=== PATIENT | female | born 1945 | race Caucasian/White ===

== ENCOUNTER 2021-12-30 08:23 | Outpatient (CLI) | payer MEDICARE | END 2021-12-30 08:24 | disposition home or self-care (01) | LOC: CSHWCC 08:23 | PROVIDERS: ATTEND Nurse Practitioner Family | DX: I87.331 Chronic venous hypertension (idiopathic) with ulcer and inflammation of right lower extremity (principal); L97.212 Non-pressure chronic ulcer of right calf with fat layer exposed; R60.0 Localized edema | CPT/HCPCS: 11042; 97139; G0463; 99203 ==

== ENCOUNTER 2022-01-02 09:28 | Outpatient (CLI) | payer MEDICARE | END 2022-01-02 09:29 | disposition home or self-care (01) | LOC: CSHWCC 09:28 | PROVIDERS: ATTEND Nurse Practitioner Family | DX: I87.331 Chronic venous hypertension (idiopathic) with ulcer and inflammation of right lower extremity (principal); L97.212 Non-pressure chronic ulcer of right calf with fat layer exposed; R60.0 Localized edema ==

== ENCOUNTER 2022-01-14 08:24 | Outpatient (CLI) | payer MEDICARE | END 2022-01-14 08:25 | disposition home or self-care (01) | LOC: CSHWCC 08:24 | PROVIDERS: ATTEND Nurse Practitioner Family | DX: I87.331 Chronic venous hypertension (idiopathic) with ulcer and inflammation of right lower extremity (principal); L97.212 Non-pressure chronic ulcer of right calf with fat layer exposed; R60.0 Localized edema ==

== ENCOUNTER 2022-02-04 09:03 | Outpatient (CLI) | payer MEDICARE | END 2022-02-04 09:04 | disposition home or self-care (01) | LOC: CSHWCC 09:03 | PROVIDERS: ATTEND Nurse Practitioner Family | DX: I87.331 Chronic venous hypertension (idiopathic) with ulcer and inflammation of right lower extremity (principal); L97.212 Non-pressure chronic ulcer of right calf with fat layer exposed; R60.0 Localized edema ==

== ENCOUNTER 2022-02-18 11:09 | Outpatient (CLI) | payer MEDICARE | END 2022-02-18 11:10 | disposition home or self-care (01) | LOC: CSHWCC 11:09 | PROVIDERS: ATTEND Nurse Practitioner Family | DX: R60.0 Localized edema (principal) | CPT/HCPCS: 97139; G0463; 99213 ==

== ENCOUNTER 2022-06-28 17:41 | Inpatient (IN) | payer MEDICARE ==
[2022-06-28] MEDS ORDERED: traMADol HCl 50 MG TAB ONE ×2 (18:09→23:26)
[2022-06-28 19:06] LABS: Anion Gap 13 mmol/L (10-20); BUN (Urea Nitrogen) 48 mg/dL (9.8-20.1); Calc. Creatinine Clearance 0 mL/min (70-130); Calcium 8.4 mg/dL (7.8-10.44); Carbon Dioxide 22 mmol/L (23-31); Chloride 93 mmol/L (98-107); Estimated GFR 32; Glucose 101 mg/dL (83-110); Potassium 3.3 mmol/L (3.5-5.1); Sodium 125 mmol/L (136-145)
[2022-06-28] MEDS ORDERED: Bisacodyl 5 MG TAB PO PRN (20:08)
[2022-06-28] MEDS ORDERED: Loperamide HCl 2 MG CAP PO PRN (20:08)
[2022-06-28 20:31] VITALS: BMI 29.0
[2022-06-28] MEDS ORDERED: Acetaminophen 325 MG TAB ONE (20:41)
[2022-06-28] MEDS: Acetaminophen 325 MG TAB PO PRN (20:44)
[2022-06-28] MEDS ORDERED: Vancomycin 1.5 GRAM/300 ML BAG 1.5 GM in Premix Bag 1 BAG IVPB SCH (21:00)
[2022-06-28] MEDS ORDERED: Nicotine 14 MG PATCH ONE (21:01)
[2022-06-28] MEDS ORDERED: Famotidine/PF 20 mg/2ml Vial ONE (21:02)
[2022-06-28] MEDS: Nicotine 14 MG PATCH TD SCH (21:20)
[2022-06-28] MEDS: Sodium Chloride 1 GM TAB PO SCH (21:20)
[2022-06-28] MEDS: Latanoprost 0.005% Ophth Soln 2.5 ml Bottle L EYE SCH (21:34)
[2022-06-28] MEDS: Potassium Chloride 20 MEQ in Lactated Ringer's 1,000 ML IV SCH (21:38)
[2022-06-28] MEDS ORDERED: Ondansetron PF 4 MG/2 ML Vial ONE (21:40)
[2022-06-28] MEDS: Ondansetron PF 4 MG/2 ML Vial IVP PRN (21:43)
[2022-06-28 21:56] LABS: CRP (Inflammatory) 23.33 mg/dL (= or < 0.5); Uric Acid 6.6 mg/dL (2.6-6.0)
[2022-06-28] MEDS: traMADol HCl 50 MG TAB PO PRN (23:28)
[2022-06-29 04:39] LABS: ALT (SGPT) 25 U/L (8-55); AST (SGOT) 35 U/L (5-34); Albumin 3.2 g/dL (3.4-4.8); Alkaline Phosphatase 87 U/L (40-110); Anion Gap 16 mmol/L (10-20); BUN (Urea Nitrogen) 35 mg/dL (9.8-20.1); Bilirubin, Total 0.4 mg/dL (0.2-1.2); Calc. Creatinine Clearance 55 mL/min (70-130); Calcium 8.7 mg/dL (7.8-10.44); Carbon Dioxide 21 mmol/L (23-31); Chloride 97 mmol/L (98-107); Estimated GFR 52; Globulin 3.6 g/dL (2.4-3.5); Glucose 85 mg/dL (83-110); Magnesium 1.8 mg/dL (1.6-2.6); Protein, Total 6.8 g/dL (5.8-8.1); Sodium 130 mmol/L (136-145)
[2022-06-29] MEDS ORDERED: Ondansetron PF 4 MG/2 ML Vial ONE (06:26)
[2022-06-29] MEDS ORDERED: traMADol HCl 50 MG TAB ONE (06:27)
[2022-06-29] MEDS: Sodium Chloride 1 GM TAB PO SCH ×3 (06:34→21:58)
[2022-06-29] MEDS: Ondansetron PF 4 MG/2 ML Vial IVP PRN ×2 (06:34→22:13)
[2022-06-29] MEDS: traMADol HCl 50 MG TAB PO PRN (06:35)
[2022-06-29 08:41] LABS: Creatinine, Urine 61.57 mg/dL (47-110)
[2022-06-29] MEDS ORDERED: Enoxaparin Sodium 40 MG/0.4 ML SYRINGE ONE (08:44)
[2022-06-29] MEDS ORDERED: Morphine 2 MG/ML VIAL ONE (08:45)
[2022-06-29] MEDS ORDERED: Aspirin 325 MG TAB ONE (08:45)
[2022-06-29] MEDS ORDERED: Famotidine 20 MG TAB ONE (08:50)
[2022-06-29] MEDS ORDERED: Zinc Sulfate 220 MG CAP ONE (08:51)
[2022-06-29] MEDS ORDERED: Famotidine 20 MG TAB PO SCH (09:00)
[2022-06-29] MEDS: Enoxaparin Sodium 40 MG/0.4 ML SYRINGE SC SCH (09:11)
[2022-06-29] MEDS: Zinc Sulfate 220 MG CAP PO SCH (09:11)
[2022-06-29] MEDS: Aspirin 325 MG TAB PO SCH (09:11)
[2022-06-29] MEDS: Morphine 2 MG/ML VIAL SLOW IVP PRN (09:12)
[2022-06-29 10:17] LABS: Anion Gap 15 mmol/L (10-20); BUN (Urea Nitrogen) 25 mg/dL (9.8-20.1); Calc. Creatinine Clearance 73 mL/min (70-130); Calcium 8.3 mg/dL (7.8-10.44); Carbon Dioxide 19 mmol/L (23-31); Chloride 98 mmol/L (98-107); Estimated GFR 73; Glucose 106 mg/dL (83-110); Potassium 3.7 mmol/L (3.5-5.1); Sodium 128 mmol/L (136-145)
[2022-06-29] MEDS: Potassium Chloride 20 MEQ in Lactated Ringer's 1,000 ML IV SCH (11:21)
[2022-06-29] MEDS ORDERED: Sodium Bicarbonate Tab 325 MG TAB PO SCH (16:00)
[2022-06-29 16:36] LABS: Anion Gap 13 mmol/L (10-20); BUN (Urea Nitrogen) 21 mg/dL (9.8-20.1); Calc. Creatinine Clearance 76 mL/min (70-130); Calcium 8.4 mg/dL (7.8-10.44); Carbon Dioxide 24 mmol/L (23-31); Chloride 97 mmol/L (98-107); Estimated GFR 77; Glucose 92 mg/dL (83-110); Potassium 3.9 mmol/L (3.5-5.1); Sodium 130 mmol/L (136-145)
[2022-06-29] MEDS ORDERED: Vancomycin HCl 1 GM in Sodium Chloride 0.9% 250 ML 250 ML IVPB SCH (21:00)
[2022-06-29] MEDS: Sodium Bicarbonate Tab 325 MG TAB PO SCH (21:11)
[2022-06-29] MEDS: Famotidine 20 MG TAB PO SCH (21:11)
[2022-06-29] MEDS: Nicotine 14 MG PATCH TD SCH (21:22)
[2022-06-29] MEDS: Latanoprost 0.005% Ophth Soln 2.5 ml Bottle L EYE SCH (21:58)
[2022-06-29 22:09] LABS: Anion Gap 11 mmol/L (10-20); BUN (Urea Nitrogen) 18 mg/dL (9.8-20.1); Calc. Creatinine Clearance 88 mL/min (70-130); Calcium 8.4 mg/dL (7.8-10.44); Carbon Dioxide 23 mmol/L (23-31); Chloride 97 mmol/L (98-107); Estimated GFR 89; Glucose 104 mg/dL (83-110); Potassium 3.5 mmol/L (3.5-5.1); Sodium 127 mmol/L (136-145)
[2022-06-30] MEDS: Morphine 2 MG/ML VIAL SLOW IVP PRN (00:06)
[2022-06-30] MEDS: Guaifenesin DM 100-10/5 ML UDCUP PO PRN (04:40)
[2022-06-30] MEDS: traMADol HCl 50 MG TAB PO PRN (05:32)
[2022-06-30 06:32] LABS: Magnesium 1.8 mg/dL (1.6-2.6)
[2022-06-30 07:15] LABS: #Basophils 0.2 10x3/uL (0.0-0.2); #Monocytes 1.4 10x3/uL (0.0-1.1); #Neutrophils 12.3 10x3/uL (1.5-8.4); %Basophils 1.2 % (0.0-2.0); %Eosinophils 0.2 % (0.0-6.0); %Lymphocytes 8.3 % (18.0-47.0); %Monocytes 8.7 % (0.0-10.0); %Neutrophils 77.9 % (40.0-75.0); Hemoglobin 11.4 g/dL (12.0-15.5); Mean Corpuscular HGB CONC 36.5 g/dL (32.0-36.0); Mean Corpuscular Hemoglobin 29.6 pg (27.0-33.0); Mean Platelet Volume 9.3 fl (7.4-10.4); Platelet Count 262 10x3/uL (150-450); RBC Distribution Width 13.8 % (11.5-14.5); Red Blood Cell (RBC) Count 3.85 10x6/uL (3.90-5.03); White Blood Cell (WBC) Count 15.8 10x3/uL (3.5-10.5)
[2022-06-30] MEDS ORDERED: ALPRAZolam 0.25 MG TAB PO PRN (07:24)
[2022-06-30 07:29] LABS: Bilirubin Neg (Negative); Blood, Urine 50 (Negative); CAUTI Indications for Culture Fever or rigors; Clarity Slightly Cloudy (Clear); Glucose, Urine (Dipstick) Normal (Negative); Ketone, Urine Negative (Negative); Leukocyte 100 (Negative); Nitrite Negative (Negative); Protein, Urine (Dipstick) 30 mg/dl (Neg-Trace); Urobilinogen Normal mg/dL (Less than 2)
[2022-06-30 07:32] LABS: Urine Culture Reflex No No
[2022-06-30 07:33] LABS: Anion Gap 15 mmol/L (10-20); BUN (Urea Nitrogen) 12 mg/dL (9.8-20.1); Calc. Creatinine Clearance 89 mL/min (70-130); Calcium 8.5 mg/dL (7.8-10.44); Carbon Dioxide 21 mmol/L (23-31); Chloride 99 mmol/L (98-107); Estimated GFR 89; Glucose 94 mg/dL (83-110); Potassium 3.6 mmol/L (3.5-5.1); Sodium 131 mmol/L (136-145)
[2022-06-30 07:42] LABS: Bacteria/HPF 1+ HPF (None Seen); RBC/HPF 0-3 HPF (0-3); Squamous Epithelial 0-3 HPF (0-3)
[2022-06-30] MEDS: Enoxaparin Sodium 40 MG/0.4 ML SYRINGE SC SCH (09:02)
[2022-06-30] MEDS: Famotidine 20 MG TAB PO SCH ×2 (09:02→21:06)
[2022-06-30] MEDS: Sodium Bicarbonate Tab 325 MG TAB PO SCH ×3 (09:02→21:11)
[2022-06-30] MEDS: Aspirin 325 MG TAB PO SCH (09:02)
[2022-06-30] MEDS: Zinc Sulfate 220 MG CAP PO SCH (09:02)
[2022-06-30] MEDS: Sodium Chloride 1 GM TAB PO SCH ×3 (09:03→21:04)
[2022-06-30] MEDS ORDERED: Magnesium Oxide 400 MG TAB PO SCH (16:00)
[2022-06-30] MEDS: metroNIDAZOLE 500 MG in Premix Bag 1 BAG IVPB SCH (16:40)
[2022-06-30 20:29] LABS: Vancomycin, Trough 5.9 ug/mL
[2022-06-30] MEDS: Vancomycin HCl 1 GM in Sodium Chloride 0.9% 250 ML 250 ML IVPB SCH (21:04)
[2022-06-30] MEDS: Mirtazapine 15 MG TAB PO SCH (21:06)
[2022-06-30] MEDS: Latanoprost 0.005% Ophth Soln 2.5 ml Bottle L EYE SCH (21:07)
[2022-06-30] MEDS: Nicotine 14 MG PATCH TD SCH (21:12)
[2022-07-01] MEDS: metroNIDAZOLE 500 MG in Premix Bag 1 BAG IVPB SCH ×4 (00:06→17:31)
[2022-07-01] MEDS ORDERED: cloNIDine 0.1 MG TAB PO SCH (02:30)
[2022-07-01] MEDS: Guaifenesin DM 100-10/5 ML UDCUP PO PRN ×3 (05:03→18:20)
[2022-07-01 05:04] LABS: Anion Gap 14 mmol/L (10-20); BUN (Urea Nitrogen) 9 mg/dL (9.8-20.1); Calc. Creatinine Clearance 92 mL/min (70-130); Calcium 8.3 mg/dL (7.8-10.44); Carbon Dioxide 23 mmol/L (23-31); Chloride 99 mmol/L (98-107); Estimated GFR 90; Glucose 94 mg/dL (83-110); Magnesium 1.7 mg/dL (1.6-2.6); Potassium 3.5 mmol/L (3.5-5.1); Sodium 132 mmol/L (136-145)
[2022-07-01 05:07] LABS: #Basophils 0.2 10x3/uL (0.0-0.2); #Eosinphils 0.1 10x3/uL (0.0-0.5); #Monocytes 1.3 10x3/uL (0.0-1.1); #Neutrophils 10.1 10x3/uL (1.5-8.4); %Basophils 1.2 % (0.0-2.0); %Eosinophils 0.5 % (0.0-6.0); %Lymphocytes 10.6 % (18.0-47.0); %Monocytes 9.6 % (0.0-10.0); %Neutrophils 74.1 % (40.0-75.0); Hemoglobin 11.3 g/dL (12.0-15.5); Mean Corpuscular HGB CONC 35.9 g/dL (32.0-36.0); Mean Corpuscular Hemoglobin 29.3 pg (27.0-33.0); Mean Corpuscular Volume 81.6 fl (81.6-98.3); Mean Platelet Volume 9.4 fl (7.4-10.4); Platelet Count 297 10x3/uL (150-450); RBC Distribution Width 13.9 % (11.5-14.5); Red Blood Cell (RBC) Count 3.86 10x6/uL (3.90-5.03); White Blood Cell (WBC) Count 13.7 10x3/uL (3.5-10.5)
[2022-07-01] MEDS ORDERED: Potassium Chloride 20 MEQ TAB PO SCH (08:00)
[2022-07-01] MEDS ORDERED: Lisinopril 20 MG TAB PO SCH (09:00)
[2022-07-01] MEDS: Vancomycin HCl 1 GM in Sodium Chloride 0.9% 250 ML 250 ML IVPB SCH ×2 (10:35→20:56)
[2022-07-01] MEDS: Acetaminophen 325 MG TAB PO PRN (10:41)
[2022-07-01] MEDS: Aspirin 325 MG TAB PO SCH (10:41)
[2022-07-01] MEDS: Sacubitril 49 MG/Valsartan 51 MG TABLET PO SCH ×2 (10:42→20:56)
[2022-07-01] MEDS: Zinc Sulfate 220 MG CAP PO SCH (10:42)
[2022-07-01] MEDS: Sodium Bicarbonate Tab 325 MG TAB PO SCH ×3 (10:42→20:55)
[2022-07-01] MEDS: Magnesium Oxide 400 MG TAB PO SCH (10:42)
[2022-07-01] MEDS: Famotidine 20 MG TAB PO SCH ×2 (10:42→20:54)
[2022-07-01] MEDS: Enoxaparin Sodium 40 MG/0.4 ML SYRINGE SC SCH (10:49)
[2022-07-01] MEDS: Sodium Chloride 1 GM TAB PO SCH ×3 (10:49→20:55)
[2022-07-01] MEDS: traMADol HCl 50 MG TAB PO PRN (12:54)
[2022-07-01] MEDS: Ondansetron PF 4 MG/2 ML Vial IVP PRN (12:55)
[2022-07-01] MEDS: Magnesium 2 GM/50 ML(in water) 2 GM in Premix Bag 1 BAG IVPB SCH (16:14)
[2022-07-01] MEDS: Morphine 2 MG/ML VIAL SLOW IVP PRN (18:08)
[2022-07-01] MEDS: Latanoprost 0.005% Ophth Soln 2.5 ml Bottle L EYE SCH (20:54)
[2022-07-01] MEDS: Mirtazapine 15 MG TAB PO SCH (20:55)
[2022-07-01] MEDS: Nicotine 14 MG PATCH TD SCH (21:57)
[2022-07-02] MEDS: metroNIDAZOLE 500 MG in Premix Bag 1 BAG IVPB SCH ×2 (01:37→05:00)
[2022-07-02] MEDS: Guaifenesin DM 100-10/5 ML UDCUP PO PRN (01:49)
[2022-07-02 05:56] LABS: #Basophils 0.1 10x3/uL (0.0-0.2); #Eosinphils 0.1 10x3/uL (0.0-0.5); #Monocytes 1.5 10x3/uL (0.0-1.1); #Neutrophils 8.1 10x3/uL (1.5-8.4); %Basophils 0.6 % (0.0-2.0); %Eosinophils 0.9 % (0.0-6.0); %Lymphocytes 12.5 % (18.0-47.0); %Monocytes 13.3 % (0.0-10.0); Hemoglobin 12.2 g/dL (12.0-15.5); Mean Corpuscular Hemoglobin 29.3 pg (27.0-33.0); Mean Corpuscular Volume 81.5 fl (81.6-98.3); Mean Platelet Volume 9.6 fl (7.4-10.4); Platelet Count 376 10x3/uL (150-450); RBC Distribution Width 13.9 % (11.5-14.5); Red Blood Cell (RBC) Count 4.16 10x6/uL (3.90-5.03); White Blood Cell (WBC) Count 11.4 10x3/uL (3.5-10.5)
[2022-07-02 06:04] LABS: Anion Gap 13 mmol/L (10-20); BUN (Urea Nitrogen) 9 mg/dL (9.8-20.1); Calc. Creatinine Clearance 91 mL/min (70-130); Calcium 8.3 mg/dL (7.8-10.44); Carbon Dioxide 24 mmol/L (23-31); Chloride 98 mmol/L (98-107); Estimated GFR 90; Glucose 101 mg/dL (83-110); Magnesium 1.7 mg/dL (1.6-2.6); Potassium 3.4 mmol/L (3.5-5.1); Sodium 132 mmol/L (136-145)
[2022-07-02] MEDS ORDERED: Magnesium Sulfate 4 GM in Sodium Chloride 0.9% 250 ML 250 ML IVPB SCH (06:45)
[2022-07-02] MEDS ORDERED: Potassium Chloride 20 MEQ TAB PO SCH (08:00)
[2022-07-02 08:29] LABS: Vancomycin, Trough 13.5 ug/mL
[2022-07-02] MEDS ORDERED: Sacubitril 49 MG/Valsartan 51 MG TABLET PO SCH (09:00)
[2022-07-02] MEDS: Enoxaparin Sodium 40 MG/0.4 ML SYRINGE SC SCH (10:32)
[2022-07-02] MEDS: Vancomycin HCl 1 GM in Sodium Chloride 0.9% 250 ML 250 ML IVPB SCH (10:32)
[2022-07-02] MEDS: Magnesium 2 GM/50 ML(in water) 2 GM in Premix Bag 1 BAG IVPB SCH ×3 (10:33→13:35)
[2022-07-02] MEDS: Zinc Sulfate 220 MG CAP PO SCH (10:34)
[2022-07-02] MEDS: Sodium Bicarbonate Tab 325 MG TAB PO SCH (10:34)
[2022-07-02] MEDS: Aspirin 325 MG TAB PO SCH (10:34)
[2022-07-02] MEDS: Magnesium Oxide 400 MG TAB PO SCH (10:35)
[2022-07-02] MEDS: Famotidine 20 MG TAB PO SCH (10:35)
[2022-07-02] MEDS: Sodium Chloride 1 GM TAB PO SCH (10:51)
[2022-07-02] MEDS: Ondansetron PF 4 MG/2 ML Vial IVP PRN (13:36)
[2022-07-02] MEDS ORDERED: Magnesium 2 GM/50 ML(in water) 2 GM in Premix Bag 1 BAG IVPB SCH (14:00)
[2022-07-02 16:10] VITALS: BP 155/72; TEMP 98.6
[2022-07-02] MEDS ORDERED: Linezolid 600 MG TAB PO SCH (16:30)
== END 2022-07-02 17:35 | disposition home or self-care (01) | DRG 863 ==
LOC: CSHERS 17:41 → INTOOBSV 19:43 → CSHERHOLD 19:43 → OBSVTOIN 06-29 09:16 → CSHTELE 06-29 14:26
PROVIDERS: ADMIT Internal Medicine; ATTEND Internal Medicine
DX: T81.41XA Infection following a procedure, superficial incisional surgical site, initial encounter (principal); N17.9 Acute kidney failure, unspecified; E22.2 Syndrome of inappropriate secretion of antidiuretic hormone; L03.116 Cellulitis of left lower limb; E87.20 Acidosis, unspecified; Z20.822 Contact with and (suspected) exposure to COVID-19; I10 Essential (primary) hypertension; F17.210 Nicotine dependence, cigarettes, uncomplicated; E89.0 Postprocedural hypothyroidism; K21.9 Gastro-esophageal reflux disease without esophagitis; F32.A Depression, unspecified; K52.9 Noninfective gastroenteritis and colitis, unspecified; E78.00 Pure hypercholesterolemia, unspecified; E87.6 Hypokalemia; Z88.6 Allergy status to analgesic agent; Z88.2 Allergy status to sulfonamides; Z88.1 Allergy status to other antibiotic agents; Z88.8 Allergy status to other drugs, medicaments and biological substances; Z79.82 Long term (current) use of aspirin; Z79.899 Other long term (current) drug therapy; Z86.73 Personal history of transient ischemic attack (TIA), and cerebral infarction without residual deficits; Z90.710 Acquired absence of both cervix and uterus; Z82.49 Family history of ischemic heart disease and other diseases of the circulatory system; Z90.89 Acquired absence of other organs; Z71.6 Tobacco abuse counseling; Y83.8 Other surgical procedures as the cause of abnormal reaction of the patient, or of later complication, without mention of misadventure at the time of the procedure
CPT/HCPCS: 36415; 80048; 80053; 80202; 81001; 82570; 83735; 83930; 83935; 84156; 84300; 84443; 84540; 84550; 85025; 86140; 93005; 93010; 94760; J1650; J1956; J2270; J2405; J3370; J3475; J3480; J7050; J7120; S0028; U0003; U0005

== ENCOUNTER 2022-07-05 15:05 | Emergency (ER) | payer MEDICARE ==
[2022-07-05 16:33] LABS: #Basophils 0.1 10x3/uL (0.0-0.2); #Eosinphils 0.2 10x3/uL (0.0-0.5); #Monocytes 1.2 10x3/uL (0.0-1.1); %Basophils 0.4 % (0.0-2.0); %Eosinophils 1.5 % (0.0-6.0); %Lymphocytes 19.8 % (18.0-47.0); %Monocytes 9.9 % (0.0-10.0); %Neutrophils 66.7 % (40.0-75.0); Hemoglobin 12.5 g/dL (12.0-15.5); Mean Corpuscular Hemoglobin 29.6 pg (27.0-33.0); Mean Corpuscular Volume 84.4 fl (81.6-98.3); Mean Platelet Volume 8.8 fl (7.4-10.4); Platelet Count 510 10x3/uL (150-450); RBC Distribution Width 14.2 % (11.5-14.5); Red Blood Cell (RBC) Count 4.23 10x6/uL (3.90-5.03)
[2022-07-05 16:45] LABS: PTT 28.4 sec (22.0-33.0); Prothrombin Time 11.1 sec (9.5-12.1)
[2022-07-05 16:49] LABS: ALT (SGPT) 16 U/L (8-55); AST (SGOT) 17 U/L (5-34); Albumin 3.5 g/dL (3.4-4.8); Alkaline Phosphatase 118 U/L (40-110); Anion Gap 17 mmol/L (10-20); BUN (Urea Nitrogen) 9 mg/dL (9.8-20.1); Bilirubin, Total 0.4 mg/dL (0.2-1.2); Calc. Creatinine Clearance 0 mL/min (70-130); Calcium 8.9 mg/dL (7.8-10.44); Carbon Dioxide 25 mmol/L (23-31); Chloride 97 mmol/L (98-107); Estimated GFR 81; Globulin 3.5 g/dL (2.4-3.5); Glucose 74 mg/dL (83-110); Potassium 4.7 mmol/L (3.5-5.1); Sodium 134 mmol/L (136-145)
== END 2022-07-05 18:05 | disposition home or self-care (01) ==
LOC: CSHERS 15:05
DX: L03.116 Cellulitis of left lower limb (principal); I87.2 Venous insufficiency (chronic) (peripheral); E78.5 Hyperlipidemia, unspecified; E78.00 Pure hypercholesterolemia, unspecified; I10 Essential (primary) hypertension; F17.210 Nicotine dependence, cigarettes, uncomplicated
CPT/HCPCS: 80053; 83605; 85025; 85610; 85652; 85730; 86140

== ENCOUNTER 2022-11-05 09:38 | Emergency (ER) | payer OTHER ==
[2022-11-05] MEDS ORDERED: Acetaminophen 325 MG TAB ONE (12:43)
[2022-11-05] MEDS ORDERED: Boostrix 0.5 ML (Tdap) VIAL (>/=7 yrs of age) ONE (12:44)
== END 2022-11-05 13:15 | disposition home or self-care (01) ==
LOC: CSHERS 09:38
DX: S02.2XXA Fracture of nasal bones, initial encounter for closed fracture (principal); S51.812A Laceration without foreign body of left forearm, initial encounter; K21.9 Gastro-esophageal reflux disease without esophagitis; E78.00 Pure hypercholesterolemia, unspecified; I10 Essential (primary) hypertension; F17.210 Nicotine dependence, cigarettes, uncomplicated; W22.8XXA Striking against or struck by other objects, initial encounter; Z86.73 Personal history of transient ischemic attack (TIA), and cerebral infarction without residual deficits
CPT/HCPCS: 70450; 70486; 90471; 90715

== ENCOUNTER 2023-03-17 20:07 | Inpatient (IN) | payer MEDICARE, OTHER ==
[~2023-03-17 20:07] MED LIST: Iopamidol 300 61% 100 ML VIAL FS ONE
[2023-03-17 21:03] LABS: #Eosinphils 0.1 10x3/uL (0.0-0.5); #Neutrophils 17.7 10x3/uL (1.5-8.4); %Basophils 0.2 % (0.0-2.0); %Eosinophils 0.3 % (0.0-6.0); %Lymphocytes 2.9 % (18.0-47.0); %Monocytes 5.2 % (0.0-10.0); %Neutrophils 90.9 % (40.0-75.0); Hematocrit 40.8 % (34.9-44.5); Hemoglobin 13.6 g/dL (12.0-15.5); Mean Corpuscular HGB CONC 33.3 g/dL (32.0-36.0); Mean Corpuscular Hemoglobin 29.6 pg (27.0-33.0); Mean Corpuscular Volume 88.7 fl (81.6-98.3); Mean Platelet Volume 9.2 fl (7.4-10.4); Platelet Count 212 10x3/uL (150-450); RBC Distribution Width 14.6 % (11.5-14.5); White Blood Cell (WBC) Count 19.5 10x3/uL (3.5-10.5)
[2023-03-17 21:30] LABS: ALT (SGPT) 12 U/L (8-55); AST (SGOT) 22 U/L (5-34); Albumin 3.8 g/dL (3.4-4.8); Alkaline Phosphatase 63 U/L (40-110); Anion Gap 20 mmol/L (10-20); BUN (Urea Nitrogen) 23 mg/dL (9.8-20.1); Bilirubin, Total 0.3 mg/dL (0.2-1.2); Calc. Creatinine Clearance 0 mL/min (70-130); Calcium 8.9 mg/dL (7.8-10.44); Carbon Dioxide 14 mmol/L (23-31); Chloride 99 mmol/L (98-107); Estimated GFR 61; Globulin 4.2 g/dL (2.4-3.5); Glucose 115 mg/dL (83-110); Lipase 38 U/L (8-78); Magnesium 1.7 mg/dL (1.6-2.6); Potassium 3.8 mmol/L (3.5-5.1); Sodium 129 mmol/L (136-145); Troponin I Less than 0.010 ng/mL (< 0.028)
[2023-03-17 21:39] LABS: Bilirubin Neg (Negative); Blood, Urine 25 (Negative); Clarity Clear (Clear); Glucose, Urine (Dipstick) Normal (Negative); Ketone, Urine Negative (Negative); Leukocyte Negative (Negative); Nitrite Negative (Negative); Protein, Urine (Dipstick) 100 mg/dl (Neg-Trace); Urobilinogen Normal mg/dL (Less than 2)
[2023-03-17 21:53] LABS: Bacteria/HPF None Seen HPF (None Seen); CAUTI Indications for Culture Dysuria,urgency,freq; RBC/HPF None Seen HPF (0-3); Squamous Epithelial 0-3 HPF (0-3); Urine Culture Reflex No No; WBC/HPF None Seen HPF (0-3)
[2023-03-17] MEDS ORDERED: Ondansetron PF 4 MG/2 ML Vial ONE (22:04)
[2023-03-17] MEDS ORDERED: LevoFLOXacin 750 mg/D5W 150 ml Premix Bag ONE (22:05)
[2023-03-18 00:13] LABS: Lactic Acid 3.1 mmol/L (0.5-2.2)
[2023-03-18] MEDS ORDERED: Communication Order-Pharmacy FS PRN (00:26)
[2023-03-18] MEDS ORDERED: Lactated Ringer's 1,000 ML IV SCH ×2 (00:30→02:00)
[2023-03-18] MEDS ORDERED: Vancomycin HCl 1.5 GM in Sodium Chloride 0.9% 500 ML IVPB SCH (00:30)
[2023-03-18] MEDS ORDERED: Metoprolol Tartrate 5 MG/5 ML VIAL IVP SCH (01:00)
[2023-03-18 01:42] VITALS: BMI 26.3
[2023-03-18] MEDS ORDERED: Vancomycin 1.5 GRAM/300 ML BAG 1.5 GM in Premix Bag 1 BAG IVPB SCH (02:00)
[2023-03-18] MEDS: metroNIDAZOLE 500 MG in Premix Bag 1 BAG IVPB SCH ×3 (02:03→16:58)
[2023-03-18] MEDS: Lactated Ringer's 1,000 ML IV SCH ×2 (02:03→14:43)
[2023-03-18] MEDS: Promethazine HCl 12.5 MG, Admixture Fee 1 EACH in Sodium Chloride 0.9% 50 ML IVPB PRN ×2 (04:26→11:45)
[2023-03-18 04:45] LABS: #Monocytes 0.4 10x3/uL (0.0-1.1); #Neutrophils 16.1 10x3/uL (1.5-8.4); %Basophils 0.2 % (0.0-2.0); %Eosinophils 0.1 % (0.0-6.0); %Lymphocytes 1.4 % (18.0-47.0); %Monocytes 2.6 % (0.0-10.0); %Neutrophils 95.2 % (40.0-75.0); Hematocrit 41.1 % (34.9-44.5); Hemoglobin 14.2 g/dL (12.0-15.5); Mean Corpuscular HGB CONC 34.5 g/dL (32.0-36.0); Mean Platelet Volume 9.1 fl (7.4-10.4); Platelet Count 254 10x3/uL (150-450); RBC Distribution Width 14.4 % (11.5-14.5); Red Blood Cell (RBC) Count 4.89 10x6/uL (3.90-5.03); White Blood Cell (WBC) Count 16.9 10x3/uL (3.5-10.5)
[2023-03-18 04:49] LABS: INR-International Normal Ratio 1.1; PTT 29.2 sec (22.0-33.0); Prothrombin Time 11.3 sec (9.5-12.1)
[2023-03-18 04:53] LABS: ALT (SGPT) 12 U/L (8-55); AST (SGOT) 18 U/L (5-34); Alkaline Phosphatase 58 U/L (40-110); Anion Gap 16 mmol/L (10-20); BUN (Urea Nitrogen) 18 mg/dL (9.8-20.1); Bilirubin, Total 0.6 mg/dL (0.2-1.2); Calc. Creatinine Clearance 63 mL/min (70-130); Calcium 8.7 mg/dL (7.8-10.44); Carbon Dioxide 21 mmol/L (23-31); Chloride 98 mmol/L (98-107); Estimated GFR 71; Globulin 3.9 g/dL (2.4-3.5); Glucose 156 mg/dL (83-110); Potassium 3.4 mmol/L (3.5-5.1); Protein, Total 7.9 g/dL (5.8-8.1); Sodium 132 mmol/L (136-145)
[2023-03-18 05:55] LABS: Magnesium 1.6 mg/dL (1.6-2.6)
[2023-03-18] MEDS ORDERED: Potassium Bicarbonate/Cit Ac 25 MEQ TAB PO SCH (10:00)
[2023-03-18] MEDS ORDERED: Ondansetron HCl/PF 4 MG in Sodium Chloride 0.9% 50 ML IVPB PRN (10:07)
[2023-03-18] MEDS: Ondansetron PF 4 MG/2 ML Vial IVP PRN (14:34)
[2023-03-18] MEDS: Acetaminophen 325 MG TAB PO PRN (14:37)
[2023-03-18] MEDS ORDERED: metroNIDAZOLE 500 MG/100 ML BAG ONE (16:47)
[2023-03-18] MEDS ORDERED: Vancomycin HCl 1 GM in Sodium Chloride 0.9% 250 ML 250 ML IVPB SCH (20:00)
[2023-03-19] MEDS: Acetaminophen 325 MG TAB PO PRN ×3 (01:29→17:12)
[2023-03-19] MEDS: metroNIDAZOLE 500 MG in Premix Bag 1 BAG IVPB SCH ×3 (01:29→17:15)
[2023-03-19 04:36] LABS: #Monocytes 1.6 10x3/uL (0.0-1.1); #Neutrophils 11.1 10x3/uL (1.5-8.4); %Basophils 0.1 % (0.0-2.0); %Eosinophils 0.1 % (0.0-6.0); %Lymphocytes 9.8 % (18.0-47.0); %Monocytes 11.5 % (0.0-10.0); Hematocrit 37.2 % (34.9-44.5); Mean Corpuscular HGB CONC 34.9 g/dL (32.0-36.0); Mean Corpuscular Hemoglobin 29.1 pg (27.0-33.0); Mean Corpuscular Volume 83.2 fl (81.6-98.3); Mean Platelet Volume 8.7 fl (7.4-10.4); Platelet Count 233 10x3/uL (150-450); RBC Distribution Width 14.7 % (11.5-14.5); Red Blood Cell (RBC) Count 4.47 10x6/uL (3.90-5.03); White Blood Cell (WBC) Count 14.2 10x3/uL (3.5-10.5)
[2023-03-19 04:42] LABS: Lactic Acid 0.9 mmol/L (0.5-2.2)
[2023-03-19 04:46] LABS: Anion Gap 13 mmol/L (10-20); BUN (Urea Nitrogen) 8 mg/dL (9.8-20.1); Calc. Creatinine Clearance 81 mL/min (70-130); Calcium 8.6 mg/dL (7.8-10.44); Carbon Dioxide 21 mmol/L (23-31); Chloride 96 mmol/L (98-107); Estimated GFR 89; Glucose 119 mg/dL (83-110); Sodium 127 mmol/L (136-145)
[2023-03-19] MEDS: Lactated Ringer's 1,000 ML IV SCH (06:17)
[2023-03-19] MEDS: Sodium Chloride 0.9% 1,000 ML IV SCH ×2 (09:19→21:25)
[2023-03-19] MEDS: Potassium Chloride 20 MEQ in Premix Bag 1 BAG IVPB SCH ×4 (10:37→17:08)
[2023-03-19] MEDS: Ondansetron PF 4 MG/2 ML Vial IVP PRN (10:44)
[2023-03-19] MEDS: Labetalol HCl 100 MG/20 ML VIAL SLOW IVP PRN (15:50)
[2023-03-19] MEDS: traMADol HCl 50 MG TAB PO PRN (16:10)
[2023-03-19] MEDS ORDERED: Sodium Chloride 1 GM TAB PO SCH (21:00)
[2023-03-19] MEDS: Apixaban 5 MG TAB PO SCH (21:19)
[2023-03-19] MEDS: Metoprolol Tartrate 25 MG TAB PO SCH (21:19)
[2023-03-20] MEDS: metroNIDAZOLE 500 MG in Premix Bag 1 BAG IVPB SCH ×3 (02:58→16:47)
[2023-03-20] MEDS: Labetalol HCl 100 MG/20 ML VIAL SLOW IVP PRN (03:54)
[2023-03-20 04:57] LABS: #Eosinphils 0.1 10x3/uL (0.0-0.5); #Monocytes 1.2 10x3/uL (0.0-1.1); #Neutrophils 8.3 10x3/uL (1.5-8.4); %Basophils 0.2 % (0.0-2.0); %Eosinophils 1.1 % (0.0-6.0); %Lymphocytes 13.6 % (18.0-47.0); %Monocytes 10.7 % (0.0-10.0); %Neutrophils 74.1 % (40.0-75.0); Hemoglobin 13.6 g/dL (12.0-15.5); Mean Corpuscular HGB CONC 34.9 g/dL (32.0-36.0); Mean Corpuscular Hemoglobin 29.1 pg (27.0-33.0); Mean Corpuscular Volume 83.5 fl (81.6-98.3); Mean Platelet Volume 9.3 fl (7.4-10.4); Platelet Count 249 10x3/uL (150-450); RBC Distribution Width 14.3 % (11.5-14.5); Red Blood Cell (RBC) Count 4.67 10x6/uL (3.90-5.03); White Blood Cell (WBC) Count 11.2 10x3/uL (3.5-10.5)
[2023-03-20 05:06] LABS: ALT (SGPT) 8 U/L (8-55); AST (SGOT) 17 U/L (5-34); Albumin 3.5 g/dL (3.4-4.8); Alkaline Phosphatase 58 U/L (40-110); Anion Gap 13 mmol/L (10-20); BUN (Urea Nitrogen) 7 mg/dL (9.8-20.1); Bilirubin, Total 0.7 mg/dL (0.2-1.2); Calc. Creatinine Clearance 83 mL/min (70-130); Calcium 8.6 mg/dL (7.8-10.44); Carbon Dioxide 22 mmol/L (23-31); Chloride 96 mmol/L (98-107); Estimated GFR 90; Globulin 3.7 g/dL (2.4-3.5); Glucose 115 mg/dL (83-110); Magnesium 1.8 mg/dL (1.6-2.6); Potassium 3.1 mmol/L (3.5-5.1); Protein, Total 7.2 g/dL (5.8-8.1); Sodium 128 mmol/L (136-145)
[2023-03-20 05:08] LABS: Phosphorus 1.7 mg/dL (2.3-4.7)
[2023-03-20] MEDS: Amlodipine 5 MG TAB PO SCH (08:52)
[2023-03-20] MEDS: Apixaban 5 MG TAB PO SCH ×2 (08:52→21:05)
[2023-03-20] MEDS: Aspirin 81 mg Enteric Coated Tablet PO SCH (08:53)
[2023-03-20] MEDS: Lisinopril 20 MG TAB PO SCH (08:53)
[2023-03-20] MEDS: Metoprolol Tartrate 25 MG TAB PO SCH ×2 (08:53→21:05)
[2023-03-20] MEDS: Sodium Chloride 0.9% 1,000 ML IV SCH ×2 (09:04→14:59)
[2023-03-20] MEDS: traMADol HCl 50 MG TAB PO PRN ×2 (09:05→15:20)
[2023-03-20] MEDS: Sodium Chloride 1 GM TAB PO SCH ×3 (10:44→21:04)
[2023-03-20] MEDS: Potassium Chloride 20 MEQ in Premix Bag 1 BAG IVPB SCH ×4 (10:45→17:47)
[2023-03-20] MEDS ORDERED: Potassium Chloride 20 MEQ in Premix Bag 1 BAG IVPB SCH (17:00)
[2023-03-21] MEDS: Sodium Chloride 0.9% 1,000 ML IV SCH (02:49)
[2023-03-21] MEDS: metroNIDAZOLE 500 MG in Premix Bag 1 BAG IVPB SCH (02:49)
[2023-03-21 04:39] LABS: #Eosinphils 0.3 10x3/uL (0.0-0.5); #Monocytes 1.4 10x3/uL (0.0-1.1); #Neutrophils 6.7 10x3/uL (1.5-8.4); %Basophils 0.3 % (0.0-2.0); %Lymphocytes 17.7 % (18.0-47.0); %Monocytes 13.2 % (0.0-10.0); %Neutrophils 65.5 % (40.0-75.0); Hemoglobin 13.6 g/dL (12.0-15.5); Mean Corpuscular HGB CONC 34.9 g/dL (32.0-36.0); Mean Corpuscular Hemoglobin 29.2 pg (27.0-33.0); Mean Corpuscular Volume 83.7 fl (81.6-98.3); Platelet Count 260 10x3/uL (150-450); RBC Distribution Width 14.3 % (11.5-14.5); Red Blood Cell (RBC) Count 4.66 10x6/uL (3.90-5.03); White Blood Cell (WBC) Count 10.3 10x3/uL (3.5-10.5)
[2023-03-21 04:56] LABS: ALT (SGPT) 10 U/L (8-55); AST (SGOT) 23 U/L (5-34); Albumin 3.4 g/dL (3.4-4.8); Alkaline Phosphatase 54 U/L (40-110); Anion Gap 13 mmol/L (10-20); BUN (Urea Nitrogen) 8 mg/dL (9.8-20.1); Bilirubin, Total 0.5 mg/dL (0.2-1.2); Calc. Creatinine Clearance 83 mL/min (70-130); Calcium 8.4 mg/dL (7.8-10.44); Carbon Dioxide 20 mmol/L (23-31); Chloride 97 mmol/L (98-107); Estimated GFR 90; Globulin 3.4 g/dL (2.4-3.5); Glucose 100 mg/dL (83-110); Potassium 3.4 mmol/L (3.5-5.1); Protein, Total 6.8 g/dL (5.8-8.1); Sodium 127 mmol/L (136-145)
[2023-03-21] MEDS: Lisinopril 20 MG TAB PO SCH (08:41)
[2023-03-21] MEDS: Amlodipine 5 MG TAB PO SCH (08:41)
[2023-03-21] MEDS: Aspirin 81 mg Enteric Coated Tablet PO SCH (08:41)
[2023-03-21] MEDS: Sodium Chloride 1 GM TAB PO SCH (08:42)
[2023-03-21] MEDS: Apixaban 5 MG TAB PO SCH (08:42)
[2023-03-21] MEDS: Metoprolol Tartrate 25 MG TAB PO SCH (08:42)
[2023-03-21 10:34] VITALS: BP 160/75; TEMP 98.6
== END 2023-03-21 11:00 | disposition home or self-care (01) | DRG 392 ==
LOC: CSHERS 20:07 → CSHTELE 03-18 01:37
PROVIDERS: ADMIT Family Medicine; ATTEND Family Medicine
DX: K52.9 Noninfective gastroenteritis and colitis, unspecified (principal); E87.1 Hypo-osmolality and hyponatremia; I50.42 Chronic combined systolic (congestive) and diastolic (congestive) heart failure; I11.0 Hypertensive heart disease with heart failure; I87.2 Venous insufficiency (chronic) (peripheral); I48.0 Paroxysmal atrial fibrillation; K21.9 Gastro-esophageal reflux disease without esophagitis; E78.00 Pure hypercholesterolemia, unspecified; F17.210 Nicotine dependence, cigarettes, uncomplicated; E87.6 Hypokalemia; Z86.73 Personal history of transient ischemic attack (TIA), and cerebral infarction without residual deficits; Z79.82 Long term (current) use of aspirin; Z79.899 Other long term (current) drug therapy; Z88.2 Allergy status to sulfonamides; Z88.5 Allergy status to narcotic agent; Z88.8 Allergy status to other drugs, medicaments and biological substances
CPT/HCPCS: 36415; 71045; 74177; 80048; 80053; 81001; 83605; 83690; 83735; 84100; 84145; 84484; 85025; 85610; 85730; 87040; 93005; 96361; 96365; 96375; J0744; J1650; J1956; J2405; J2550; J3370; J3480; J7050; J7120; Q9967